=== PATIENT | male | born 1975 | race Caucasian/White ===

== ENCOUNTER 2021-02-11 14:38 | Emergency (ER) | payer OTHER ==
[~2021-02-11] VITALS: Ht 180.3 cm; Wt 90.7 kg
[2021-02-11] MEDS ORDERED: LISINOPRIL10 MG PO (15:19)
[2021-02-11] MEDS ORDERED: ZPAK PO (15:26)
[2021-02-11] MEDS ORDERED: APAP W/CODEINE1 TA2 PO (15:47)
[2021-02-11 16:00] VITALS: BP 121/71
== END 2021-02-11 16:00 | disposition home or self-care (01) ==
LOC: M.ERS 14:38
DX: U07.1 COVID-19 (principal); I10 Essential (primary) hypertension

== ENCOUNTER 2021-05-21 03:42 | Emergency (ER) | payer BC ==
[~2021-05-21] VITALS: Ht 180.3 cm; Wt 92.5 kg
[~2021-05-21 03:42] MED LIST: APAP W/CODEINE1 TA2 PO; LISINOPRIL10 MG PO; ZPAK PO
[2021-05-21 04:44] LABS: ABSOLUTE BASOPHILS 0.1 thou/uL (0.0-0.2); ABSOLUTE EOSINOPHILS 0.3 thou/uL (0.0-0.7); ABSOLUTE LYMPHOCYTES 2.3 thou/uL (0.8-5.3); ABSOLUTE MONOCYTES 0.4 thou/uL (0.0-1.2); ABSOLUTE NEUTROPHILS 2.7 thou/uL (1.6-8.1); BASOPHILS 1.2 %; EOSINOPHILS 5.6 %; HEMATOCRIT 41.2 % (42.0-52.0); HEMOGLOBIN 14.8 gm/dL (14.0-18.0); LYMPHOCYTES 39.7 %; MCH 31.7 pg (26.0-34.0); MCHC 35.8 g/dL (28.0-37.0); MCV 88.5 fL (80.0-100.0); MONOCYTES 7.1 %; MPV 8.2 fl. (7.2-11.1); NUCLEATED RBCS 0 /100WBC; PLATELET COUNT* 222 thou/uL (150-400); POLYS 46.4 %; RBC 4.66 mil/uL (4.50-6.00); RDW-CV 12.1 % (10.5-14.5); WBC 5.9 thou/uL (4.0-11.0)
[2021-05-21] MEDS ORDERED: TORADOL 10 MG T10 MG PO (04:47)
[2021-05-21] MEDS ORDERED: DOXYCYCLINE 10100 MG PO (04:47)
[2021-05-21 04:48] LABS: CALCIUM 8.7 mg/dL (8.5-10.1); CREATININE 0.9 mg/dL (0.6-1.3)
[2021-05-21] MEDS ORDERED: MUPIROCIN22 GM TOP (04:51)
[2021-05-21 04:52] LABS: ALBUMIN 3.9 g/dL (3.4-5.0); TOTAL BILIRUBIN 0.3 mg/dL (<0.1-1.0); TOTAL PROTEIN 7.4 g/dL (6.4-8.2)
[2021-05-21 06:30] VITALS: BP 124/78
== END 2021-05-21 06:30 | disposition home or self-care (01) ==
LOC: M.ERS 03:42
PROVIDERS: Personal Emergency Response Attendant
DX: L97.911 Non-pressure chronic ulcer of unspecified part of right lower leg limited to breakdown of skin (principal); L03.115 Cellulitis of right lower limb; I10 Essential (primary) hypertension; Z79.899 Other long term (current) drug therapy